=== PATIENT | female | born 1975 | race Caucasian/White ===

== ENCOUNTER 2016-10-21 10:41 | Emergency (ER) | payer OTHER ==
--- NOTE | 2016-10-21 11:48 | DIAGNOSTIC IMAGING REPORT ---
PROCEDURE: XR HIP 2VW W W/O AP PELVIS-RT INDICATION: Right hip pain. TECHNIQUE: AP view of the pelvis and hips with lateral view of the right hip. COMPARISON: Comparison made radiographs of the pelvis and right hip on 02/18/2015. FINDINGS: RIGHT HIP: There has been development of mild degenerate changes right hip joint with small peripheral osteophytes. No evidence of acute process or fracture PELVIS: Osseous pelvis is normal. Left hip appears normal. IMPRESSION: 1. Mild arthritic changes of the right hip joint (most compatible with osteoarthritis). 2. Otherwise negative pelvis and right hip. 3. Findings discussed with Dr. Scott Whatley.
--- NOTE | 2016-10-21 12:49 | ED NURSING NOTES ---
Clinical Report - Nurses [facility] [address] [place] [address] 10/21/2016 10:41 Patient: JEANNIE MARRERO TRIAGE Triage time 10:55 Oct 21 2016. Chief Complaint: RIGHT LOWER EXTREMITY PAIN. Location of symptoms- right hip (pt with right hip pain that began yesterday at 1700, pt has hx of bursitis in same hip, however this is different in that the hip is "popping in and out"). Alert. SEPSIS SCREEN: Sepsis Screen. Negative (no infection suspected/documented). --10:59 Azam Tyler R.N. 10:55 10/21/16. BP: 145/87. HR: 68. RR: 17. O2 saturation: 100%. Temp: 97.7 F. Pain level now: 09/24. --10:59 Azam Tyler R.N. Weight: 79.3 kg stated. Height/Length: 71 inches Per Patient. BMI: 24.4. --10:57 Azam Tyler R.N. Medications Benadryl Oral. --10:58 Azam Tyler R.N. Allergies Levaquin. --10:58 Azam Tyler R.N. Medication/allergy information source: the patient. --10:59 Azam Tyler R.N. History Arrived by private vehicle. Historian: patient. Accompanied by family. No injury occurred. This occurred last night (1700). 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 PAST MEDICAL HX: Tetanus status: up-to-date. Immunizations: up-to-date. Last normal menstrual period- October. SOCIAL HX: Never smoker. History of drug use: marijuana. No alcohol use. No infectious disease exposure. ABUSE ASSESSMENT: No report of abuse. SELF HARM ASSESSMENT: A self harm assessment was performed. The patient answered "no" to the question "Do you have thoughts of harming or killing yourself?". FALL RISK ASSESSMENT: Fall risk assessment completed. No fall risk identified. NUTRITIONAL RISK ASSESSMENT: The nutritional risk assessment revealed no deficiencies. FUNCTIONAL ASSESSMENT: Functional assessment: no impairments noted. LEARNING NEEDS ASSESSMENT: The learning needs assessment revealed no barriers. SKIN INTEGRITY ASSESSMENT: Skin integrity risk assessment completed. No skin integrity risk identified. --10:59 Azam Tyler R.N. PROBLEMS: Bursitis. Fractured Phalanx (Finger). Laceration. Animal Bite. Hypertension. Sprain. Tetanus Status. Sinusitis. URI. Immunizations. LNMP - Last Normal Menstrual Period. --10:58 Azam Tyler R.N. ADDITIONAL SURGERIES: Cholecystectomy. Tubal Ligation. --10:58 Azam Tyler R.N. Interventions ID and allergy band on patient. To treatment room. --10:59 Azam Tyler R.N. PHYSICAL ASSESSMENT To room via wheelchair. Patient gowned. GENERAL / NEURO / PSYCH: Oriented X 4. Appears in no acute distress. Appears in pain and anxious. EXTREMITIES: Limited ROM present. Extremity pulses are within normal limits. Abnormal gait. Neuro-vascular status intact to the extremity. No lower extremity edema. Right hip: tenderness. SKIN: Skin intact. Skin is warm and dry. --11:00 zAam Tyler R.N. NURSING PROGRESS NOTES Extremity elevated. Neuro-vascular extremity check distal to injury: pulses intact, no edema, capillary refill <2 seconds and sensation intact. Reassurance given. Patient identifiers checked. Call light placed in reach. Side rails up. Bed placed in lowest position. Brakes of bed on. Patient ready for evaluation- chart flagged. Patient waiting for evaluation. --11:01 Azam Tyler R.N. 11:06 10/21/16. ( MD at bedside). --11:10 Azam Tyler R.N. 11:19 10/21/2016 Percocet (Oxycodone-Acetaminophen) PO 5/325 mg Tablets 1 tab given. Allergies verified, confirmed 5 rights and sedative warning given to the patient. --11:19 Azam Tyelr R.N. 11:19 10/21/2016 Toradol (Ketorolac Tromethamine) IM 60 mg given. Given in the right deltoid. --11:19 Azam Tyler R.N. Patient transported to radiology by stretcher with tech. ( pt to xray). --11:19 Azam Tyler R.N. 12:08 10/21/2016 Morphine (Morphine Sulfate (PF)) IM 8 mg given. Given in the right gluteus julieth. Allergies verified, confirmed 5 rights and sedative warning given to the patient and patient's family. --12:08 Azam Tyler R.N. 12:10/21/2016 Zofran ODT (Ondansetron) PO 4 mg given. Allergies verified and confirmed 5 rights. --12: Azam Tyler R.N. ( pt given morphine as ordered, pt concerned with nausea, MD notified with vo for zofran odt). --12: Azam Tyler R.N. Patient identifiers checked. Call light placed in reach. Side rails up. Bed placed in lowest position. Brakes of bed on. --12: Azam Tyler R.N. DISPOSITION / DISCHARGE Condition at departure: improved. No learning barriers present. Discharge instructions provided and reviewed with the patient and spouse. Reviewed medication(s) side effects, precautions, dosing and course information. Prescription(s) given to the patient. Patient verbalized understanding. Written instructions provided in Malay. The patient was discharged by the physician. She was discharged home and accompanied by spouse. She left the Emergency Department in a wheelchair and via private vehicle. Spouse driving. --13:07 Azam Tyler R.N. 13:06 10/21/16. BP: 131/74. HR: 62. RR: 15. O2 saturation: 100%. Temp: deferred. Pain level now: 06/24. --13:07 Azam Tyler R.N. Locked/Released at 10/21/2016 13:28 by Azam Tyler R.N.
--- NOTE | 2016-10-21 12:49 | ED ORDER SUMMARY ---
..... Patient: JEANNIE MARRERO OrderSheet [facility] VisitID: [id number] [address] [place] [address] 41y, F Registration Date/Time: 10/21/2016 ORDER SHEET Weight: 79.3 kg (stated) Allergies: Levaquin GENERAL ORDERS: Hip 2V Right w AP Pelvis Urgent (11:12 10/21/2016 Randy Guadalupe) (Ack 11:15 Darryn) (13:28 Riccardo-Jeramie R.N.) MEDICATION ORDERS: Percocet PO 5/325 mg (HIGH ALERT MEDICATION, NOW) (11:12 10/21/2016 Randy Guadalupe) (Ack 11:13 Riccardo-Jeramie R.N.) (11:19 KPaligia-Jeramie R.N.) Toradol IM 60 mg (NOW) (11:12 10/21/2016 Randy Guadalupe) (Ack 11:13 Mike R.N.) (11:19 Riccardo-Jeramie R.N.) Morphine IM 8 mg (HIGH ALERT MEDICATION, NOW) (11:59 10/21/2016 Randy Guadalupe) (12:08 Mike R.N.) Zofran ODT PO 4 mg (NOW) (12:08 10/21/2016 Mike R.N. verbal order read back to Randy Guadalupe) (12:09 Mike R.N.) IV FLUIDS: ORDER SHEET NOTES: [Electronically signed by Azam Tyler R.N. (13:28 10/21/2016)] [Electronically signed by Scott Whatley Dr. (00:58 10/25/2016)] [Electronically locked/signed by Azam Tyler R.N. (13:28 10/21/2016)]
--- NOTE | 2016-10-21 12:49 | ED ORDER SUMMARY ---
..... Patient: JEANNIE MARRERO OrderSheet [facility] VisitID: [id number] [address] [place] [address] 41y, F Registration Date/Time: 10/21/2016 ORDER SHEET Weight: 79.3 kg (stated) Allergies: Levaquin GENERAL ORDERS: Hip 2V Right w AP Pelvis Urgent (11:12 10/21/2016 Randy Guadalupe) (Ack 11:15 Darryn) (13:28 Riccardo-Jeramie R.N.) MEDICATION ORDERS: Percocet PO 5/325 mg (HIGH ALERT MEDICATION, NOW) (11:12 10/21/2016 Randy Guadalupe) (Ack 11:13 Riccardo-Jeramie R.N.) (11:19 KPaligia-Jeramie R.N.) Toradol IM 60 mg (NOW) (11:12 10/21/2016 Randy Guadalupe) (Ack 11:13 Mike R.N.) (11:19 Riccardo-Jeramie R.N.) Morphine IM 8 mg (HIGH ALERT MEDICATION, NOW) (11:59 10/21/2016 Randy Guadalupe) (12:08 Mike R.N.) Zofran ODT PO 4 mg (NOW) (12:08 10/21/2016 Mike R.N. verbal order read back to Randy Guadalupe) (12:09 Mike R.N.) IV FLUIDS: ORDER SHEET NOTES: [Electronically signed by Azam Tyler R.N. (13:28 10/21/2016)] [Electronically signed by Scott Whatley Dr. (00:58 10/25/2016)] [Electronically locked/signed by Azma Tyler R.N. (13:28 10/21/2016)]
--- NOTE | 2016-10-21 12:49 | ED CLINICAL REPORT ---
Clinical Report - Physicians/Mid Levels [facility] [address] [place] [address] 10/21/2016 10:41 Patient: JEANNIE MARRERO Time Seen: 1059; initial patient contact. Arrived- By private vehicle. Historian- patient. HISTORY OF PRESENT ILLNESS Chief Complaint: Injury to right thigh. The injury happened today. Occurred at home. ( felt a pop and click). Injury secondary to other mechansim (walking). Patient is experiencing severe pain. Patient denies injury to the head or neck. No other injury. (no back pain). REVIEW OF SYSTEMS The patient complains of pain on weight bearing. No swelling, suspected foreign body or skin laceration. All systems otherwise negative, except as recorded above. PAST HISTORY See nurses notes. Tetanus immunization status is up-to-date. Medications: Benadryl Oral. Allergies: Levaquin. ADDITIONAL NOTES The nursing notes have been reviewed. PHYSICAL EXAM Vital Signs: 10/21/2016 10:55 BP: 145/87. HR: 68. RR: 17. O2 saturation: 100%. Temp: 97.7 F. Pain level now: 6/10. Oxygen saturation normal. Appearance: Alert. Oriented X3. No acute distress. Head: Head atraumatic. ENT: Ears normal. Nose normal. Pharynx normal. Neck: Normal inspection. Neck supple. C-spine non-tender. CVS: Normal heart rate and rhythm. Heart sounds normal. Pulses normal. Respiratory: No respiratory distress. Breath sounds normal. Chest nontender. Abdomen: No visible injury. Soft and nontender. Bowel sounds normal. Back: Normal inspection. No tenderness. ROM normal. Skin: Skin intact. Skin warm and dry. Normal skin color. Normal skin turgor. Extremities: (tender to the right lateral hip over the greater trochanter. no groin tenderness. no crepitus. no overlying skin changes. no masses. no trinity abnormalities. compartments soft. skin intact. increased pain with passive ROM and active ROM. leg does not appear to be shortened. pulses 2+ and symmtrical to the contralateral side.). LABS, X-RAYS, AND EKG Rt Hip X-ray: (PROCEDURE: XR HIP 2VW W W/O AP PELVIS-RT INDICATION: Right hip pain. TECHNIQUE: AP view of the pelvis and hips with lateral view of the right hip. COMPARISON: Comparison made radiographs of the pelvis and right hip on 02/18/2015. FINDINGS: RIGHT HIP: There has been development of mild degenerate changes right hip joint with small peripheral osteophytes. No evidence of acute process or fracture PELVIS: Osseous pelvis is normal. Left hip appears normal. IMPRESSION: 1. Mild arthritic changes of the right hip joint (most compatible with osteoarthritis). 2. Otherwise negative pelvis and right hip.). The X-rays were independently viewed by me and interpreted by the radiologist. The X-rays were discussed with the radiologist (via pacs and phone). PROGRESS AND PROCEDURES Course of Care: Patient with right hip pain. No specific traumatic injury noted however sensation of "popping." possible dislocation. patient without other findings on exam. patient without neurovascular compromise. XR ordered. pain medication provided. somewhat difficult time with pain control. patient continues to be neurovasc intact. patient with findings noted on xray. discussed with patient her work up in the ed including diagnosis, home care, followup, and return precautions. All questions answered. patient expressed understanding of these instructions and was agreeable to them. Disposition: Discharged. Condition: good. CLINICAL IMPRESSION 10/21/2016 10:55 BP: 145/87. HR: 68. RR: 17. O2 saturation: 100%. Temp: 97.7 F. Pain level now: 6/10. Hypertensive. Oxygen saturation normal. Essential hypertension. Mild osteoarthritis (right hip). Acute pain in the right lower extremity (hip). INSTRUCTIONS Warnings: GENERAL WARNINGS: Return or contact your physician immediately if your condition worsens or changes unexpectedly, if not improving as expected, or if other problems arise. Specifically return if pain, vomiting, bleeding, breathing difficulty or fever. Your Current Medications: CONTINUE TAKING THE FOLLOWING MEDICATIONS: Benadryl Oral. Prescription Medications: Percocet 5 mg/325 mg: take 1-2 tablets orally every 6 hours as needed for pain. Dispense twenty (20). No refill. Substitution is permissible. OTC Medications: Motrin (available over the counter): take according to label instructions. Follow-up: Return to the emergency department as needed. Follow up with your doctor in. Call for the next available appointment. Reason for referral: recheck today's concerns. Summary of care provided to patient via paper. Screening today revealed the patient's blood pressure to be in the hypertensive range. The patient should follow up with a primary care provider for blood pressure management. Understanding of the discharge instructions verbalized by patient. (Electronically signed by Scott Whatley Dr. 10/25/2016 0:58)
--- NOTE | 2016-10-25 00:58 | ED MAR SUMMARY ---
..... Medication Administration Record [facility] [address] [place] [address] Patient: JEANNIE MARRERO Visit ID: [id number] 41y, F Weight: 79.3 kg Height/Length: 71 in BMI: 24.4 ALLERGIES: Levaquin Given 11:10/21/2016 Azam Tyler R.N. Medication Administered: PERCOCET [PO] (OXYCODONE-ACETAMINOPHEN), Dose: 1 tab 5/325 mg Tablets PO. Medication Ordered: Percocet PO 5/325 mg (HIGH ALERT MEDICATION, NOW). Given 11:10/21/2016 Azam Tyler R.N. Medication Administered: TORADOL [IM] (KETOROLAC TROMETHAMINE), Dose: 60 mg IM. Medication Ordered: Toradol IM 60 mg (NOW). Given 12:10/21/2016 Azam Tyler R.N. Medication Administered: MORPHINE [IM] (MORPHINE SULFATE (PF)), Dose: 8 mg IM. Medication Ordered: Morphine IM 8 mg (HIGH ALERT MEDICATION, NOW). Given 12:10/21/2016 Azam Tyler R.N. Medication Administered: ZOFRAN ODT [PO] (ONDANSETRON), Dose: 4 mg PO. Medication Ordered: Zofran ODT PO 4 mg (NOW).
--- NOTE | 2016-10-25 00:58 | ED MED RECONCILIATION SUMMARY ---
Patient: JEANNIE MARERRO Medication Reconciliation Report [facility] VisitID: [id number] [address] [place] [address] 41y, F Registration Date/Time: 10/21/2016 Weight: 79.3 kg Height/Length: 71 in. BMI: 24.4 ALLERGIES: Levaquin The patient's Home Medications are listed below: CONTINUE TAKING THE FOLLOWING MEDICATIONS: Benadryl Oral The source(s) of the original Home Medication information: patient The following Medications were given to the patient in the Emergency Department: Percocet [PO] PO 1 tab, administered: 10/21/2016 11:19:00 AM Toradol [IM] IM 60 mg, administered: 10/21/2016 11:19:00 AM Morphine [IM] IM 8 mg, administered: 10/21/2016 12:08:00 PM Zofran ODT [PO] PO 4 mg, administered: 10/21/2016 12:09:00 PM The following Medications were prescribed to the patient: Motrin (available over the counter): take according to label instructions. -- Scott Whatley Dr. Percocet 5 mg/325 mg: take 1-2 tablets orally every 6 hours as needed for pain. Dispense twenty (20). No refill. Substitution is permissible. -- Scott Whatley Dr.
--- NOTE | 2016-10-25 00:58 | ED DISCHARGE INSTRUCTIONS ---
Patient: JEANNIE MARRERO General Instructions [facility] VisitID: [id number] [place] [address] 41y, F Registration Date/Time: 10/21/2016 10/21/2016 10:55 BP: 145/87. HR: 68. RR: 17. O2 saturation: 100%. Temp: 97.7 F. Pain level now: 09/24. Hypertensive. Oxygen saturation normal. Essential hypertension. Mild osteoarthritis (right hip). Acute pain in the right lower extremity (hip). INSTRUCTIONS Warnings: GENERAL WARNINGS: Return or contact your physician immediately if your condition worsens or changes unexpectedly, if not improving as expected, or if other problems arise. Specifically return if pain, vomiting, bleeding, breathing difficulty or fever. Your Current Medications: CONTINUE TAKING THE FOLLOWING MEDICATIONS: Benadryl Oral. Prescription Medications: Percocet 5 mg/325 mg: take 1-2 tablets orally every 6 hours as needed for pain. Dispense twenty (20). No refill. Substitution is permissible. OTC Medications: Motrin (available over the counter): take according to label instructions. Follow-up: Return to the emergency department as needed. Follow up with your doctor in. Call for the next available appointment. Reason for referral: recheck today's concerns. Summary of care provided to patient via paper. Screening today revealed the patient's blood pressure to be in the hypertensive range. The patient should follow up with a primary care provider for blood pressure management. Understanding of the discharge instructions verbalized by patient. ADDITIONAL INFORMATION Pain, Uncertain Cause [Acute] Pain is the bodys way of calling attention to a problem. Pain can be caused by many conditions - some minor, some serious. In your case, we were not able to find the exact cause for your pain. However, at this time there is no sign of any serious or life-threatening illness causing your pain. Sometimes more tests will be needed to determine the cause. Other times, just allowing more time to pass will either make it clear what the problem is, or the pain will go away by itself. Home Care: You may use acetaminophen (Tylenol) or ibuprofen (Motrin, Advil) to control pain, unless another medicine was prescribed. [NOTE: If you have chronic liver or kidney disease or ever had a stomach ulcer or GI bleeding, talk with your doctor before using these medicines.] Follow Up with your doctor or as advised by our staff. Get Prompt Medical Attention if any of the following occur: Changes in the pattern of your pain Appearance of new symptoms Fever of 100.4F (38C) or higher, or as directed by your healthcare provider High Blood Pressure -- To Be Confirmed [No Tx] Your blood pressure was higher today than normal. Sometimes anxiety or pain can cause a temporary rise in blood pressure that later returns to normal. If your blood pressure is high on one measurement, this does not mean that you have hypertension (a chronic illness). However, you must have your blood pressure measured again within the next few days to find out if its still high. A normal blood pressure is 120/80 or less. The first (top) number is the "systolic" pressure. The second (bottom) number is the "diastolic" pressure. Hypertension exists when either the top number is 140 or higher, OR the bottom number is 90 or higher on repeated measurements. Blood pressure in the range of 120-140 (systolic) or 80-89 (diastolic) is considered "pre-hypertension". This means your are at risk for getting hypertension. You should have regular blood pressure checks to be sure your blood pressure is not rising. Home Care: Measure your blood pressure on 3 different days and write down the results. This can be done at your doctor's office or this facility. Some pharmacies and grocery stores offer automated blood pressure machines for your use. Follow Up: If your blood pressure is "high" (over 120/80) on 2 out of 3 days, you will need to follow up with your doctor for further evaluation and treatment. DO NOT PUT THIS OFF! Untreated high blood pressure increases the risk for heart attack, also known as acute myocardial infarction, or AMI, and stroke. It is a treatable condition. Get Prompt Medical Attention if any of the following occur: Chest pain or shortness of breath Severe headache Throbbing or rushing sound in the ears Nosebleed Sudden severe abdominal pain Extreme drowsiness, confusion or fainting Dizziness or vertigo (dizziness with spinning sensation) Weakness of an arm or leg or one side of the face Difficulty with speech or vision Osteoarthritis Osteoarthritis (also called Degenerative Joint Disease) is the most common form of arthritis in adults over 50. It is not the same as Rheumatoid Arthritis. The exact cause is not known but may be related to excess wear and tear on the joint over a long period of time. Prior injury to that joint, or repeated stress on a joint can also cause this type of arthritis. Osteoarthritis most often affects the hands, knees, spine and hips (in that order). The most common symptoms are joint stiffness, pain and swelling. Home Care: When a joint is more sore than usual, rest that joint for a day or two. Heat is very helpful. This can be provided by taking hot baths, applying a heating pad for up to 30 minutes at a time. Because symptoms are usually worse in the morning, many patients like to take a hot bath just after awakening to relax the muscle and soothe the joints. Exercise is the most important part of home treatment for osteoarthritis. This prevents the muscles and ligaments around the joint from becoming weak and helps maintain the full range of joint motion. This limits further damage to the joint. If you are overweight, this puts a lot of extra strain on weight-bearing joints of the lower back, hips, knees, feet and ankles. Losing weight will improve your arthritis symptoms in these joints. Talk to your doctor about a safe and effective weight loss program for yourself. Anti-inflammatory medicine such as ibuprofen (Advil, Motrin) or naproxen (Aleve) is often used to treat this condition. If this alone is not helping, your doctor may prescribe a stronger medicine. If narcotic pain medicines have been prescribed, they should be used in addition to anti-inflammatory drugs and only for severe pain. Follow Up with your doctor as advised by our staff. Get Prompt Medical Attention if any of the following occur: Redness or swelling of a painful joint Fever of 100.4F (38C) or higher, or as directed by your healthcare provider Worsening joint pain Oxycodone Hydrochloride, Acetaminophen Oral tablet What is this medicine? ACETAMINOPHEN; OXYCODONE (a set a CHELI tejinder fen; ox i KOE done) is a pain reliever. It is used to treat mild to moderate pain. How should I use this medicine? Take this medicine by mouth with a full glass of water. Follow the directions on the prescription label. Take your medicine at regular intervals. Do not take your medicine more often than directed. Talk to your press machine feeder regarding the use of this medicine in children. Special care may be needed. Patients over 65 years old may have a stronger reaction and need a smaller dose. What side effects may I notice from receiving this medicine? Side effects that you should report to your doctor or health pharmacy care coordinator as soon as possible: allergic reactions like skin rash, itching or hives, swelling of the face, lips, or tongue breathing difficulties, wheezing confusion light headedness or fainting spells severe stomach pain yellowing of the skin or the whites of the eyes Side effects that usually do not require medical attention (report to your doctor or health pharmacy care coordinator if they continue or are bothersome): dizziness drowsiness nausea vomiting What may interact with this medicine? alcohol antihistamines barbiturates like amobarbital, butalbital, butabarbital, methohexital, pentobarbital, phenobarbital, thiopental, and secobarbital benztropine drugs for bladder problems like solifenacin, trospium, oxybutynin, tolterodine, hyoscyamine, and methscopolamine drugs for breathing problems like ipratropium and tiotropium drugs for certain stomach or intestine problems like propantheline, homatropine methylbromide, glycopyrrolate, atropine, belladonna, and dicyclomine general anesthetics like etomidate, ketamine, nitrous oxide, propofol, desflurane, enflurane, halothane, isoflurane, and sevoflurane medicines for depression, anxiety, or psychotic disturbances medicines for sleep muscle relaxants naltrexone narcotic medicines (opiates) for pain phenothiazines like perphenazine, thioridazine, chlorpromazine, mesoridazine, fluphenazine, prochlorperazine, promazine, and trifluoperazine scopolamine tramadol trihexyphenidyl What if I miss a dose? If you miss a dose, take it as soon as you can. If it is almost time for your next dose, take only that dose. Do not take double or extra doses. Where should I keep my medicine? Keep out of the reach of children. This medicine can be abused. Keep your medicine in a safe place to protect it from theft. Do not share this medicine with anyone. Selling or giving away this medicine is dangerous and against the law. Store at room temperature between 20 and 25 degrees C (68 and 77 degrees F). Keep container tightly closed. Protect from light. This medicine may cause accidental overdose and if it is taken by other adults, children, or pets. Flush any unused medicine down the toilet to reduce the chance of harm. Do not use the medicine after the expiration date. What should I tell my health care provider before I take this medicine? They need to know if you have any of these conditions: brain tumor Crohn's disease, inflammatory bowel disease, or ulcerative colitis drink more than 3 alcohol containing drinks per day drug abuse or addiction head injury heart or circulation problems kidney disease or problems going to the bathroom liver disease lung disease, asthma, or breathing problems an unusual or allergic reaction to acetaminophen, oxycodone, other opioid analgesics, other medicines, foods, dyes, or preservatives or trying to get breast-feeding What should I watch for while using this medicine? Tell your doctor or health pharmacy care coordinator if your pain does not go away, if it gets worse, or if you have new or a different type of pain. You may develop tolerance to the medicine. Tolerance means that you will need a higher dose of the medication for pain relief. Tolerance is normal and is expected if you take this medicine for a long time. Do not suddenly stop taking your medicine because you may develop a severe reaction. Your body becomes used to the medicine. This does NOT mean you are addicted. Addiction is a behavior related to getting and using a drug for a non-medical reason. If you have pain, you have a medical reason to take pain medicine. Your doctor will tell you how much medicine to take. If your doctor wants you to stop the medicine, the dose will be slowly lowered over time to avoid any side effects. You may get drowsy or dizzy. Do not drive, use machinery, or do anything that needs mental alertness until you know how this medicine affects you. Do not stand or sit up quickly, especially if you are an older patient. This reduces the risk of dizzy or fainting spells. Alcohol may interfere with the effect of this medicine. Avoid alcoholic drinks. There are different types of narcotic medicines (opiates) for pain. If you take more than one type at the same time, you may have more side effects. Give your health care provider a list of all medicines you use. Your doctor will tell you how much medicine to take. Do not take more medicine than directed. Call emergency for help if you have problems breathing. The medicine will cause constipation. Try to have a bowel movement at least every 2 to 3 days. If you do not have a bowel movement for 3 days, call your doctor or health pharmacy care coordinator. Do not take Tylenol (acetaminophen) or medicines that have acetaminophen with this medicine. Too much acetaminophen can be very dangerous. Many nonprescription medicines contain acetaminophen. Always read the labels carefully to avoid taking more acetaminophen. You have been given the following additional information: Pain, Uncertain Cause (Acute) Hypertension, To Be Confirmed Osteoarthritis Oxycodone Hydrochloride, Acetaminophen Oral tablet (Electronically signed by Scott Whatley Dr. 10/25/2016 0:58)
--- NOTE | 2016-10-25 00:58 | ED MAR SUMMARY ---
..... Medication Administration Record [facility] [address] [place] [address] Patient: JEANNIE MARRERO Visit ID: [id number] 41y, F Weight: 79.3 kg Height/Length: 71 in BMI: 24.4 ALLERGIES: Levaquin Given 11:10/21/2016 Azam Tyler R.N. Medication Administered: PERCOCET [PO] (OXYCODONE-ACETAMINOPHEN), Dose: 1 tab 5/325 mg Tablets PO. Medication Ordered: Percocet PO 5/325 mg (HIGH ALERT MEDICATION, NOW). Given 11:10/21/2016 Azam Tyler R.N. Medication Administered: TORADOL [IM] (KETOROLAC TROMETHAMINE), Dose: 60 mg IM. Medication Ordered: Toradol IM 60 mg (NOW). Given 12:10/21/2016 Azam Tyler R.N. Medication Administered: MORPHINE [IM] (MORPHINE SULFATE (PF)), Dose: 8 mg IM. Medication Ordered: Morphine IM 8 mg (HIGH ALERT MEDICATION, NOW). Given 12:10/21/2016 Azam Tyler R.N. Medication Administered: ZOFRAN ODT [PO] (ONDANSETRON), Dose: 4 mg PO. Medication Ordered: Zofran ODT PO 4 mg (NOW).
--- NOTE | 2016-10-25 00:58 | ED MED RECONCILIATION SUMMARY ---
Patient: JEANNIE MARRERO Medication Reconciliation Report [facility] VisitID: [id number] [address] [place] [address] 41y, F Registration Date/Time: 10/21/2016 Weight: 79.3 kg Height/Length: 71 in. BMI: 24.4 ALLERGIES: Levaquin The patient's Home Medications are listed below: CONTINUE TAKING THE FOLLOWING MEDICATIONS: Benadryl Oral The source(s) of the original Home Medication information: patient The following Medications were given to the patient in the Emergency Department: Percocet [PO] PO 1 tab, administered: 10/21/2016 11:19:00 AM Toradol [IM] IM 60 mg, administered: 10/21/2016 11:19:00 AM Morphine [IM] IM 8 mg, administered: 10/21/2016 12:08:00 PM Zofran ODT [PO] PO 4 mg, administered: 10/21/2016 12:09:00 PM The following Medications were prescribed to the patient: Motrin (available over the counter): take according to label instructions. -- Scott Whatley Dr. Percocet 5 mg/325 mg: take 1-2 tablets orally every 6 hours as needed for pain. Dispense twenty (20). No refill. Substitution is permissible. -- Scott Whatley Dr.
== END 2016-10-21 13:04 | disposition home or self-care (01) ==
LOC: ED SRH 10:41
DX: M16.11 Unilateral primary osteoarthritis, right hip (principal); M25.551 Pain in right hip; I10 Essential (primary) hypertension; X50.3XXA Overexertion from repetitive movements, initial encounter; Y93.01 Activity, walking, marching and hiking; Y99.9 Unspecified external cause status; Y92.009 Unspecified place in unspecified non-institutional (private) residence as the place of occurrence of the external cause; Z88.8 Allergy status to other drugs, medicaments and biological substances